=== PATIENT | female | born 1965 | race Caucasian/White ===

== ENCOUNTER 2017-02-01 22:06 | Emergency (ER) | payer BC, OTHER ==
[~2017-02-01] VITALS: Ht 162.6 cm; Wt 69.9 kg
[2017-02-01] MEDS ORDERED: LEVO88TA3 (22:15)
[2017-02-01] MEDS ORDERED: IBUP-1022 (22:15)
[2017-02-01 23:25] LABS: BASO % 0.3 % (0.0-1.0); EOS # 0.1 K/mm3 (0.0-0.50); EOS % 3.2 % (0.0-3.0); LARGE UNSTAINED CELL # 0.1 K/mm3 (0.0-0.4); LARGE UNSTAINED CELL % 1.9 % (0.0-4.0); LYMPH # 1.7 K/mm3 (1.5-4.5); LYMPH % 37.9 % (24.0-44.0); MEAN CORPUSCULAR HGB CONC 34.2 g/dl (32.0-36.5); MEAN CORPUSCULAR VOLUME 93.4 fl (80.0-96.0); MONO # 0.3 K/mm3 (0.0-0.8); MONO % 7.4 % (0.0-5.0); NEUTROPHILS # 2.1 K/mm3 (1.8-7.7); NEUTROPHILS % 49.3 % (36.0-66.0); PLATELET COUNT, AUTOMATED 278 k/mm3 (150-450); WHITE BLOOD COUNT 4.3 K/mm3 (4.0-10.0)
--- NOTE | 2017-02-01 23:27 | REP ---
Clinical: Chest pain. Technique: PA and lateral. Comparison: None. Findings: Mediastinum and cardiac silhouette are within normal limits. Subtle left lower lobe atelectasis cannot be excluded and should be correlated clinically. No definite effusion. No pneumothorax. Skeletal structures intact. Impression: Cannot exclude subtle left lower lobe atelectasis. Signed by Mathew Farmer MD 02/01/2017 11:19 P
[2017-02-01 23:31] LABS: INR 0.85
[2017-02-01 23:56] LABS: ALBUMIN 3.9 GM/DL (3.2-5.2); ALBUMIN/GLOBULIN RATIO 1.18 (1.00-1.93); ALKALINE PHOSPHATASE 114 U/L (45-117); ALT/SGPT 27 U/L (12-78); ANION GAP 7 MEQ/L (8-16); AST/SGOT 21 U/L (15-37); BILIRUBIN,DIRECT 0.1 MG/DL (0.0-0.2); BILIRUBIN,TOTAL 0.4 MG/DL (0.2-1.0); BLOOD UREA NITROGEN 14 MG/DL (7-18); CALCIUM LEVEL 9.5 MG/DL (8.5-10.1); CARBON DIOXIDE LEVEL 27 MEQ/L (21-32); CHLORIDE LEVEL 107 MEQ/L (98-107); CREATININE FOR GFR 0.77 MG/DL (0.55-1.02); GLOMERULAR FILTRATION RATE > 60.0 (>51); GLUCOSE, FASTING 88 MG/DL (70-105); POTASSIUM SERUM 3.8 MEQ/L (3.5-5.1); SODIUM LEVEL 141 MEQ/L (136-145); TOTAL PROTEIN 7.2 GM/DL (6.4-8.2)
[2017-02-02 00:03] LABS: FREE T4 0.92 NG/DL (0.76-1.46)
[2017-02-02 01:40] VITALS: BP 121/67
[2017-02-02] MEDS ORDERED: KETO10TAB PO (01:46)
--- NOTE | 2017-02-02 05:31 | ECGEPIP ---
Stationary ECG Study [facility] - ED Test Date: 2017-02-01 Pat Name: MALACHI SMART Department: Room: - Gender: F [employer] Lead: agueda : 1965 Requested By: MESHA BARRETT Order Number: [id number] Reading MD: Mu Munoz Measurements Intervals [place] Rate: 72 P: 56 DE: 158 QRS: 28 QRSD: 86 T: 49 QT: 395 QTc: 433 Interpretive Statements SINUS RHYTHM Electronically Signed On 02-02-2017 5:31:17 EDT by Mu Munoz
== END 2017-02-02 02:20 | disposition home or self-care (01) ==
LOC: M ED 22:06
DX: R07.89 Other chest pain (principal); E03.9 Hypothyroidism, unspecified; J30.9 Allergic rhinitis, unspecified; Z79.899 Other long term (current) drug therapy

== ENCOUNTER → 2020-03-21 | Outpatient (CLI) | payer BC ==
[~2020-03-21] MED LIST: IBUP-1022; KETO10TAB PO; LEVO88TA3
--- NOTE | 2020-03-21 13:26 | REPVR ---
PROCEDURE INFORMATION: Exam: MR Cervical Spine Without Contrast Exam date and time: 03/21/2020 11:22 AM Age: 54 years old Clinical indication: Pain; Cervicalgia TECHNIQUE: Imaging protocol: Multiplanar magnetic resonance images of the cervical spine without contrast. COMPARISON: No relevant prior studies available. FINDINGS: Vertebrae: No acute fracture is identified. There is reversal of the normal cervical lordosis which may be due to patient positioning or muscle spasm. Degenerative marrow edema is noted in the right C2-C3 facets. Spinal cord: The cervical cord is of normal signal intensity and size. C2-C3: There is severe right facet arthropathy and mild left facet arthropathy. This is causing mild right neural foraminal narrowing. There is no spinal canal or left foraminal stenosis. C3-C4: There is shallow broad-based posterior disc bulging, mild uncinate spurring, and mild facet arthropathy. Disc bulging abuts the ventral surface of the cord, but there is no cord displacement, flattening, or compression. There is no significant spinal canal or neural foraminal stenosis. C4-C5: There is a shallow broad-based posterior disc osteophyte complex, moderate uncinate spurring, and mild facet arthropathy. This is causing moderate bilateral neural foraminal narrowing. There is no significant spinal canal stenosis. C5-C6: There is a shallow broad-based posterior disc osteophyte complex, moderate uncinate spurring, and minimal facet arthropathy. This is causing minimal spinal canal stenosis, moderate/severe right neural foraminal narrowing, and moderate left neural foraminal narrowing. C6-C7: There is a broad-based posterior disc osteophyte complex, moderate uncinate spurring, and minimal facet arthropathy. This is causing mild spinal canal stenosis, severe left neural foraminal narrowing, and moderate right neural foraminal narrowing. C7-T1: There is mild facet arthropathy. There is no significant spinal canal or neural foraminal stenosis. Vertebral arteries: Expected flow voids in the vertebral arteries. Soft tissues: The prevertebral soft tissues are within normal limits. IMPRESSION: 1. Reversal of the normal cervical lordosis which may be due to patient positioning or muscle spasm 2. Chronic degenerative changes of the cervical spine as discussed above Electronically signed by: Todd Zuluaga On 03/21/2020 13:26:49 PM
== END ==
LOC: M RAD 10:45
PROVIDERS: ATTEND Family Medicine
DX: M54.2 Cervicalgia (principal)